=== PATIENT | female | born 1945 | race Caucasian/White ===

== ENCOUNTER 2023-05-30 13:04 | Outpatient (CLI) | payer MEDICARE, BC, SELFPAY ==
[2023-05-30 14:07] LABS: CRP < 0.5 mg/dL (0.0-0.9)
[2023-05-30 14:13] LABS: Rheumatoid Factor Screen Negative (Negative)
[2023-05-30 14:38] LABS: Erythrocyte Sedimentation Rate 16 mm/hr (0-20)
[2023-06-03 02:37] LABS: Angiotensin Converting Enzyme 11.9 U/L (9-67)
[2023-06-03 11:56] LABS: RPR Screen Non-Reactive (Non-Reactive)
[2023-06-04 11:59] LABS: NIL 0.02 IU/mL; Quantiferon TB Plus, 1T NEGATIVE (NEGATIVE); TB2-NIL 0.01 IU/mL
[2023-06-04 15:32] LABS: HLA B27 Negative (Negative)
[2023-06-06 09:31] LABS: ANCA Screen Negative (Negative)
== END 2023-05-30 13:05 | disposition home or self-care (01) ==
LOC: CHSLAB 13:16
PROVIDERS: PCP Nurse Practitioner
DX: H30.23 Posterior cyclitis, bilateral (principal); H20.9 Unspecified iridocyclitis
CPT/HCPCS: 36415; 81374; 82164; 85652; 86036; 86038; 86140; 86430; 86480; 86592; 86812

== ENCOUNTER 2024-09-27 13:37 | Emergency (ER) | payer MEDICARE, BC, SELFPAY ==
[2024-09-27 13:59] VITALS: BP 138/67; PULSE 84; RESP 16; TEMP 36.5; O2SAT 98
--- NOTE | 2024-09-27 14:43 | ED.FEMALEGU ---
HPI - Female Genitourinary General Chief complaint: Urogenital-Female Stated complaint: Uti Symptoms Time Seen by Provider: 09/27/24 14:38 Source: patient and RN notes reviewed Mode of arrival: ambulatory Limitations: no limitations History of Present Illness HPI Narrative: Patient presents today with a 2 day history of suprapubic pressure, urinary frequency and odor. Denies dysuria or hematuria. Denies fever or any additional symptoms. No [id number] treatment prior to arrival. Related Data Home Medications ?Medication ?Instructions ?Recorded ?Confirmed ?Last Taken ?Type allopurinol 100 mg tablet 100 mg PO DAILY 09/27/24 09/27/24 Unknown History amlodipine 2.5 mg tablet 2.5 mg PO DAILY 09/27/24 09/27/24 Unknown History atorvastatin 80 mg tablet 80 mg PO DAILY 09/27/24 09/27/24 Unknown History carvedilol 3.125 mg tablet 3.125 mg PO Q12H 09/27/24 09/27/24 Unknown History estradiol 0.01% (0.1 mg/gram) 0.1 appful vaginal .pm 09/27/24 09/27/24 Unknown History vaginal cream fexofenadine 180 mg tablet 180 mg PO Q24H 09/27/24 09/27/24 Unknown History (Allergy Relief (fexofenadine)) fluticasone propionate 50 2 spray intranasal Q12H 09/27/24 09/27/24 Unknown History mcg/actuation nasal spray,suspension levothyroxine 75 mcg tablet 75 mcg PO DAILY 09/27/24 09/27/24 Unknown History oxybutynin chloride 5 mg tablet 5 mg PO Q12H 09/27/24 09/27/24 Unknown History tramadol 50 mg tablet 50 mg PO Q12H 09/27/24 09/27/24 Unknown History venlafaxine 75 mg capsule,extended 225 mg PO QPM 09/27/24 09/27/24 Unknown History release 24 hr Allergies Allergy/AdvReac Type Severity Reaction Status Date / Time acetaminophen (From Allergy Nausea Verified 09/27/24 13:57 Darvocet-N) hydromorphone (From Dilaudid) Allergy Nausea and Verified 09/27/24 13:57 Vomiting meperidine (From Demerol) Allergy Nausea and Verified 09/27/24 13:57 Vomiting morphine Allergy Shakiness Verified 09/27/24 13:57 Penicillins Allergy Itching Verified 09/27/24 13:57 propoxyphene (From Allergy Nausea Verified 09/27/24 13:57 Darvocet-N) Review of Systems Review of Systems: CONSTITUTIONAL: Denies body aches, fever, chills, or sweats. EYES: Denies visual changes, redness, or discharge. ENT: Denies rhinorrhea, congestion, sore throat, or otalgia. CARDIOVASCULAR: Denies chest pain, palpitations, or edema. RESPIRATORY: Denies cough or dyspnea. GASTROINTESTINAL: Denies abdominal pain, nausea, vomiting, or diarrhea.+ suprapubic pressure GENITOURINARY: + frequency, malodorous urine. SKIN: Denies rash, itching, or wounds. MUSCULOSKELETAL: Denies back pain, joint pain, or myalgia. NEUROLOGIC: Denies headache, numbness, tingling, or weakness. PSYCH: Denies depression or anxiety. PMFSH Comments At time of signature, I have reviewed and agree with nursing past medical, surgical, social and family history unless otherwise noted. Please see nursing chart for further information. There is no relevant family history pertinent to the presenting complaint Exam Narrative: GENERAL: Well-appearing, well-nourished, and in no acute distress. HEAD: Normocephalic, atraumatic. EYES: EOMI. No redness or drainage. Conjunctivae normal. ENT: Mucous membranes pink and moist. NECK: Normal AROM. CHEST: No respiratory distress. Clear to auscultation. HEART: Regular rate and rhythm. No murmur appreciated. Normal peripheral pulses. ABDOMEN: Soft, nondistended, normal active bowel sounds.+ suprapubic tenderness.-CVAT EXTREMITIES: Normal range of motion. No edema. SKIN: Warm, dry, no rash. Capillary refill normal. Normal skin turgor. NEURO: No focal deficits. Alert and oriented x3. Gait steady. PSYCH: Normal affect. No signs of depression or anxiety. Course Course Level of Care: Express Care Visit Vital Signs Vital signs: Vital Signs Temperature 97.7 F 09/27/24 13:59 Pulse Rate 84 09/27/24 13:59 Respiratory Rate 16 09/27/24 13:59 Blood Pressure 138/67 09/27/24 13:59 Pulse Oximetry 98 09/27/24 13:59 Temperature 97.7 F 09/27/24 13:59 Pulse Rate 84 09/27/24 13:59 Respiratory Rate 16 09/27/24 13:59 Blood Pressure 138/67 09/27/24 13:59 Pulse Oximetry 98 09/27/24 13:59 Reviewed MDM - Female Genitourinary MDM Narrative Medical decision making narrative: Urinalysis is consistent with infection. Patient will be started on a course of cephalexin. Culture pending. Anticipatory guidance given. Differential Diagnosis Differential diagnosis: Likely urinary tract infection, vaginitis and cystitis Lab Data Attestation: I reviewed the patient's lab results. Labs: Lab Results 09/27/24 Range/Units 14:07 POC Urine Color Yellow POC Urine Clarity Cloudy POC Urine pH 5.5 POC Ur Specif [place] 1.025 POC Urine Protein 2+ (Negative) POC Ur Glucose (UA) Negative (Negative) POC Urine Ketones Trace (Negative) POC Urine Blood Trace (Negative) POC Urine Nitrite Negative (Negative) POC Urine Bilirubin 1+ (Negative) POC Urine Urobilinogen 0.2 POC U Leukocyte Ester[place] 1+ (Negative) Critical Care Time Critical Care Time Critical Care Time: No Discharge Plan Discharge Clinical Impression: Urinary tract infection Qualifiers: Urinary tract infection type: acute cystitis Hematuria presence: with hematuria Qualified Code(s): N30.01 - Acute cystitis with hematuria Patient Disposition: Home, Self-Care Condition: Stable Instructions: Antibiotic Form, Urinary Tract Infection in Women (ED) Additional Instructions: Your urine shows infection today. Take Keflex as prescribed until gone. Your urine will be sent of for a culture to identify what type of bacteria is causing your infection. If the culture shows that your medication will not get rid of your infection, you will be notified and a new antibiotic will be called in for you. If your symptoms worsen to include fever, sweats, chills, nausea, vomiting, severe abdominal or back pain, please go to the ER for further evaluation. Your blood pressure was elevated above 120/80 today at Urgent Care. This puts you above the threshold for follow up. Please schedule a followup visit with your personal physician as soon as possible, for further evaluation and treatment. Even blood pressure exceeding 120/80 may indicate pre-hypertension. Patient Language: Tamaz[place] Prescriptions: New cephalexin 500 mg capsule 500 mg PO Q6H 7 Days Qty: 28 0RF No Action allopurinol 100 mg tablet 100 mg PO DAILY amlodipine 2.5 mg tablet 2.5 mg PO DAILY atorvastatin 80 mg tablet 80 mg PO DAILY carvedilol 3.125 mg tablet 3.125 mg PO Q12H estradiol 0.01 % (0.1 mg/gram) cream 0.1 appful VAGINAL .pm Rx Instructions: 0.1 vaginally PM; fexofenadine [Allergy Relief (fexofenadine)] 180 mg tablet 180 mg PO Q24H fluticasone propionate 50 mcg/actuation spray,suspension 2 spray INTRANASAL Q12H levothyroxine 75 mcg tablet 75 mcg PO DAILY oxybutynin chloride 5 mg tablet 5 mg PO Q12H tramadol 50 mg tablet 50 mg PO Q12H venlafaxine 75 mg capsule,extended release 24hr 225 mg PO QPM Follow-up/Referrals: Javed,Felicia Bryan, [employer] [Primary Care Provider] - Time of Disposition: 14:47
[2024-09-27 14:51] LABS: EDUAAPPEAR Cloudy; EDUABILI 1+ (Negative); EDUABLOOD Trace (Negative); EDUACOLOR1 Yellow; EDUAGLUCOSE Negative (Negative); EDUAKETONE Trace (Negative); EDUALEUKO 1+ (Negative); EDUANITRATE Negative (Negative); EDUAPH 5.5; EDUAPROTEIN 2+ (Negative); EDUASPGRAVITY 1.025; EDUAUROBILI 0.2
== END 2024-09-27 14:54 | disposition home or self-care (01) ==
PROVIDERS: Emergency Provider Nurse Practitioner
DX: N30.01 Acute cystitis with hematuria (principal); B96.20 Unspecified Escherichia coli [E. coli] as the cause of diseases classified elsewhere; E78.00 Pure hypercholesterolemia, unspecified; I10 Essential (primary) hypertension; E03.9 Hypothyroidism, unspecified
CPT/HCPCS: 81003; 87077; 87086; 87186; 99203; G0463